=== PATIENT | male | born 1960 ===

== ENCOUNTER 2017-08-10 06:31 | Day surgery (SDC) | payer OTHER ==
--- NOTE | 2017-08-05 22:27 | PDGENHP ---
History and Physical - Chief Complaint Right Hip Pain - History of Present Illness 1. Bilateral~Femoroacetabular impingement (EFRAIN) Cam type, with~resultant labral tear; RIGHT SIDE SYMPTOMATIC 2. Clinical Suspicion of retrotorsion 3. ~~Right Greater Trochanteric bursitis HISTORY OF PRESENT ILLNESS: Dorianis a 57 y.o.~active male~who I have had the pleasure to consult on today. I have enjoyed meeting him. He~lives in [place], [place]. 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 ~Sabina~is ; sabina~has 3~ children. ~Dorianenjoys walking, hiking. Aditya's right~hip pain~started December 2016, with no~recalled trauma or injury, and with no~previous complaints. Doriandoes not have~a known history of hip dysplasia. Presentation today is of anterior right~hip pain.~~The hip does not~wake him~at night and does not~click and catch on him. Sitting does not present a problem~ for him. Doriandoes not~report suffering from lower back pain episodes. Dorianhas~participated in physical therapy (8 weeks). . Sabina~has not~received sufficient symptomatic improvement. Dorianhas~utilized medication for pain management, including OTC acetaminophen. Dorianhas used medication since the pain began. Doriandenies issues with the left~hip. ~ Dorianunderstands that he~has a hip and pelvis problem which should be researched and wishes to get a better understanding of his~hip status, followed by an establishment of a treatment strategy, hoping gabinowould be able to get back to his~well being active life. History: Past medical history: ~ HTN Relevant familial history: None which is relevant Past surgical history: No. Surgery Anesthesia 1 Right arthroscopic shoulder general Doriandenies problematic issues with general anesthesia in the past. I have reviewed, verified and agree with the past medical, surgical, family and social history. Current Medications:Deniahas a current medication list which includes the following prescription(s): acetaminophen, fexofenadine, hydrochlorothiazide, metoprolol succinate, and mometasone. ALLERGIES:~is allergic to aspirin; ibuprofen; and penicillins. Objective: Physical Examination: Dorianis 5~feet 9~inches tall and weighs 194~Lbs. Aditya~is AAO x3; he~is well- nourished, in NAD. Skin is warm and dry. ~Breathing is non-labored. ~CV with RRR by pulse. Abdomen is soft, NTND. Currently, he~walks with a abnormal antalgic gait favoring LEFT leg. Trendelenburg sign is negative~and proprioception is reduced, both~sides. He~presents with no~signs of joint laxity. Beightons Score: 0 Lower spine examination is negative~for sciatic or femoral nerve irritation with negative~SLR &~femoral stretch tests. Range of motion of the spine is normal~for flexion, extension, and rotations, with no~associated pain. Strength, Sensation and pulses are normal - bilaterally Ankles and knees exams are normal~and no~mal-alignment is evident. He~has no leg length discrepancy. Thigh circumference is symmetric~with no evidence for muscle atrophy~on both~ side. Hip ROM (degrees): FL ER At 90~hip FL IR At 90~hip FL AB AD EX IR Neutral hip ER Neutral hip R 100 45 5 30 5 5 10 45 L 100 45 5 30 5 10 15 35 Specific hip and pelvis tests: Impingement Test ANGELITO Roll Add. Longus R +++ +++ + Negative L Negative Negative Negative Negative Glut. Med ITB Posterior Imp R Negative 5/5 strength Negative 5/5 strength Negative L Negative 5/5 strength Negative 5/5 strength Negative Squeeze test measured normal Bony Symphysis pubis is pain free~to touch while concentric activity of the rectus abdominis, does not~produce pain at its insertion. Ilio Psos specific tests are positive for pain during cycling for the right hip~ , no snap. HF has weakness no pain the right hip. Greater trochanteric burse is painful~on the right hip. Piriformis tests: FAIR is negative, with no~local signs of neuritis related to sciatic nerve. SIJs examination is normal~with normal~ANGELITO in relation and local tenderness. Hamstrings tests are negative~functional contraction and negative~tendinopathy both hips. On a daily basis, the following percentages reflect Aditya's overall total pain: Deep hip: 80% Right GT: 20% Imaging: Radiology studies which I have personally reviewed, analyzed and measured are below: XR: AP of the hip and pelvis: Performed in a good~technique Coccyx at the level of ~pubic symphysis Standing [place] Lines are preserved. Minimal~Pathological signs are seen in the Symphysis Pubis. Minimal~Pathological signs are seen at the Ischial tuberosity. ~ Specific measurements show: NSA~ LCE Sourcil~Angle Sharp's angle Lat. Cam Lat. Pincer C.Over~sign Head~Coverage % ATDmm R N 30 10 41 + - 12-12:30 N N L N 28 8 40 + - 12-2 N N Pos. wall sign ISS NAD ~~Dysplasia Comments R + Negative 17.2~mm Negative L + Negative 11.2~mm Negative Sclerosis Sup. Lat. OA Cysts Joint Space-WBZ Joint Space-Medial R + + Negative 5.6~mm 7.1~mm L + + Negative 6.3~mm 6.7~mm X Table lateral: Anterior cam lesion is seen~on the right hip. Alpha Angle: ~ Right 60~irma Impression and plan: Aditya~is a 57 y.o.~active male~suffering from symptomatic Right~hip pain due to Right~Femoroacetabular impingement (EFRAIN) Cam type, with~resultant labral tear~ causing significant disability to him~and altering his~sport and life activities. Physical examination, imaging, and his~story correspond with the diagnosis mentioned above. I explained that femoroacetabular impingement (EFRAIN) arises due to a bony or soft tissue conflict between the femur (ball) and acetabulum (socket) caused by an abnormality in the shape of the hip joint. Over time, repetitive impingement can result in damage to the labrum and adjacent surface cartilage within the socket, ultimately giving rise to progressive osteoarthritis of the hip. I explained that although a labral tear can be a source of pain, it is rarely the root of the problem and typically occurs secondary to an underlying abnormality in the shape and mechanics of the hip joint. ~ I reviewed conservative treatment options for EFRAIN including activity modification to avoid positions of impingement, physical therapy, non-steroidal anti-inflammatory medications, and various injections (corticosteroid and PRP) aimed at reducing inflammation in the hip joint or/and preventing dynamic impingement. PRP injections may promote healing and reduce symptoms in certain cases but it will not repair chronically damaged tissue. Although these measures may help to buy time and reduce current level of symptoms, they are not a definitive solution to the problem given the underlying abnormality in the shape of the hip joint. Patients who have failed conservative management and continue to experience symptoms are candidates for hip arthroscopy, a minimally invasive surgery that can definitively address the underlying problem. Hip arthroscopy typically includes treating the labrum with either repair or reconstruction of the torn labrum; as well as addressing the underlying abnormalities by restoring the normal shape to the hip joint. ~If the cartilage is damaged a Microfracture surgical procedure may also be necessary to help stimulate the growth of fibrocartilage. ~If a patient requires a labral reconstruction or a Microfracture, the initial rehabilitation from the surgery may take longer, but the exterminator results are typically favorable. I reviewed the technical aspects of hip arthroscopy including risks, benefits, and expected course of recovery. Aditya~understands that hip arthroscopy is a minimally invasive outpatient procedure carried out through small incisions on the outer aspect of the hip joint. During surgery, the labral tear will be identified and either repaired or reconstructed~using bone anchors and suture material. Additionally, any excessive bone will be removed with a high-speed mayuri to reshape the hip joint and restore normal anatomy. Risks include infection, bleeding, injury to nearby nerves or vessels, stiffness, persistent pain, instability, venous thromboembolic disease, and traction related complications including temporary foot numbness. Rarely, revision surgery may be required to address these problems. Overall recovery takes approximately 4~ 8~months depending on the extent of damage and degree of repair. In the event that the labral tissue quality is inadequate for successful repair and healing, Aditya~understands that a labral reconstruction will be performed. This procedure entails placing a cadaver tissue graft within the hip joint and stabilizing it with bone anchors to build a new labrum. The overall recovery time for labral reconstruction is similar to that of labral repair, although the surgical procedure takes longer to perform. Aditya~will review the info presented. In order to obtain more detailed information regarding the alignment, orientation, and shape of the bony hip and pelvis I will order a CT scan to be performed. The results of the CT scan, including femoral torsion and acetabular version measured values and 3D images, will aid me in deciding on the best treatment strategy and surgical pre-planning. Dorianwill contact us if he~wishes to pursue further treatment in the future. Dorianis happy with this plan. I have also supplied him~with handouts, outlining the expected surgical treatment and rehab involved. I wish~Aditya~all the best, ~~ PRINCESS Fagan History Information - Allergies/Home Medication List Allergies/Adverse Reactions: aspirin Allergy (Verified 07/30/17 10:34) RESP DISTRESS ibuprofen Allergy (Verified 07/30/17 10:34) RESP DISTRESS Penicillins Allergy (Verified 07/30/17 10:33) CHILDHOOD UNK Home Medications: Thelma Allergy 07/30/17 [Last Taken Unknown] HCTZ (*) 07/30/17 [Last Taken Unknown] Metoprolol Succinate 07/30/17 [Last Taken Unknown] Nasal [place] 07/30/17 [Last Taken Unknown] Tylenol Extra Strength 07/30/17 [Last Taken Unknown] I have personally reviewed and updated: medical history - Social History Smoking Status: Former smoker Review of Systems Review of Systems: Physical Exam Physical Exam:
[2017-08-10] MEDS ORDERED: ACETAMINOPHEN 500 MG TAB PO ONE (06:43)
[2017-08-10] MEDS ORDERED: PREGABALIN 150 MG CAP PO ONE (06:43)
[2017-08-10] MEDS ORDERED: CLINDAMYCIN 900 MG/DEXTROSE 50 ML IV ONE (06:43)
[2017-08-10] MEDS ORDERED: LR 1,000 ML IV ONE (06:45)
[2017-08-10] MEDS ORDERED: BUPIVACAINE 0.25% 30 ML SDV ONE (06:57)
[2017-08-10] MEDS ORDERED: EPINEPHrine 1 MG/ML INJ ONE ×2 (06:57→10:31)
--- NOTE | 2017-08-10 07:35 | PDANEPAE ---
ANE History of Present Illness 57 yo with EFRAIN ANE Past Medical History - Cardiovascular History Hx Hypertension: Yes Hx Arrhythmias: No Hx Chest Pain: No Hx Coronary Artery / Peripheral Vascular Disease: No Hx CHF / Valvular Disease: No Hx Palpitations: No - Pulmonary History Hx COPD: No Hx Asthma/Reactive Airway Disease: No Hx Recent Upper Respiratory Infection: No Hx Oxygen in Use at Home: No Hx Sleep Apnea: No Sleep Apnea Screening Result - Last Documented: Negative - Neurologic History Hx Cerebrovascular Accident: No Hx Seizures: No Hx Dementia: No - Endocrine History Hx Diabetes: No - Renal History Hx Renal Disorders: No - Liver History Hx Hepatic Disorders: No - Neurological & Psychiatric Hx Hx Neurological and Psychiatric Disorders: No - Cancer History Hx Cancer: No - Congenital Disorder History Hx Congenital Disorders: No - GI History Hx Gastrointestinal Disorders: No - Other Health History Other Health History: ALLERGIC RHINITIS - Chronic Pain History Chronic Pain: Yes (R HIP PAIN) - Surgical History Prior Surgeries: TONSILLECTOMY. R SHOULDER SCOPE ANE Review of Systems Review of Systems: - Exercise capacity METS (RN): 4 METS ANE Patient History - Allergies Allergies/Adverse Reactions: aspirin Allergy (Verified 07/30/17 10:34) RESP DISTRESS ibuprofen Allergy (Verified 07/30/17 10:34) RESP DISTRESS Penicillins Allergy (Verified 07/30/17 10:33) CHILDHOOD UNK - Home Medications Home Medications: Thelma Allergy 07/30/17 [Last Taken 08/09/17] HCTZ (*) 07/30/17 [Last Taken 08/08/17] Metoprolol Succinate 07/30/17 [Last Taken 08/10/17] Nasal [place] 07/30/17 [Last Taken 08/09/17] Tylenol Extra Strength 07/30/17 [Last Taken 08/09/17] - NPO status NPO Status: no food or drink >8 hours NPO Since - Liquids (Date): 08/10/17 NPO Since - Liquids (Time): 05:30 NPO Since - Solids (Date): 08/09/17 NPO Since - Solids (Time): 21:00 - Anes Hx Anes Hx: no prior problems - Smoking Hx Smoking Status: Former smoker - Family Anes Hx Family Hx Anesthesia Complications: NEG ANE Labs/Vital Signs - Vital Signs Blood Pressure: 151/109 Heart Rate: 81 Respiratory Rate: 16 O2 Sat (%): 96 Height: 175.26 cm Weight: 86.183 kg ANE Physical Exam - Airway Neck exam: FROM Mallampati Score: Class 1 - Pulmonary Pulmonary: no respiratory distress - Cardiovascular Cardiovascular: regular rate and rhythym - ASA Status ASA Status: II ANE Anesthesia Plan Anesthesia Plan: general endotracheal anesthesia
[2017-08-10] MEDS ORDERED: MIDAZOLAM 2 MG/2 ML VIAL IVP ONE (07:36)
[2017-08-10] MEDS ORDERED: fentaNYL 250 MCG/5 ML INJ ONE (08:35)
[2017-08-10] MEDS ORDERED: PROPOFOL 200 MG/20 ML VIAL ONE (08:36)
[2017-08-10] MEDS ORDERED: ONDANSETRON 4 MG/2 ML VIAL IVP PRN ×2 (12:15→13:32)
[2017-08-10] MEDS ORDERED: HYDROCODONE/APAP 5/325 TAB PO PRN (12:15)
[2017-08-10] MEDS ORDERED: oxyCODONE IR 5 MG TAB PO PRN ×2 (12:15→13:32)
[2017-08-10] MEDS ORDERED: NALOXONE HCL 0.4 MG/ML INJ IVP PRN (12:15)
[2017-08-10] MEDS ORDERED: PROMETHAZINE HCL 25 MG/ML INJ IVP PRN ×2 (12:15→13:32)
--- NOTE | 2017-08-10 12:16 | POSTANESTH ---
Post Anesthetic Evaluation Cardiovascular Status: Normal, Stable Respiratory Status: Normal, Stable Level of Consciousness/Mental Status: Can Participate in Eval Pain Control: Adequate, Prn Tx Ordered Nausea/Vomiting Control: Adequate, Prn Tx Ordered Complications Possibly Related to Anesthesia: None Noted
[2017-08-10] MEDS ORDERED: fentaNYL 100 MCG/2 ML INJ ONE (12:20)
[2017-08-10] MEDS ORDERED: HYDROmorphONE/DILAUDID 2 MG/ML INJ ONE (12:20)
[2017-08-10] MEDS: fentaNYL 100 MCG/2 ML INJ IVP PRN ×2 (12:23→12:35)
[2017-08-10] MEDS: HYDROmorphONE/DILAUDID 2 MG/ML INJ IVP PRN ×2 (12:35→12:38)
[2017-08-10] MEDS ORDERED: ACETAMINOPHEN 325 MG TAB PO PRN (13:32)
[2017-08-10] MEDS ORDERED: ONDANSETRON DISINTEGRATING 4 MG TAB PO PRN (13:32)
[2017-08-10] MEDS ORDERED: HYDROmorphONE/DILAUDID 1 MG/ML INJ IVP PRN (13:32)
[2017-08-10] MEDS ORDERED: HYDROCODONE/APAP 5/325 TAB ONE (13:59)
[2017-08-10 15:24] VITALS: BP 121/86
== END 2017-08-10 15:54 | disposition home or self-care (01) ==
LOC: FSGY 06:31 → F3N 13:32 → UNDOADMOB 13:32 → FSGY 15:54
PROVIDERS: ATTEND Orthopaedic Surgery Sports Medicine
DX: M25.851 Other specified joint disorders, right hip (principal); S73.191A Other sprain of right hip, initial encounter; M16.11 Unilateral primary osteoarthritis, right hip
CPT/HCPCS: C1713; J0171; J1170; J2250; J2704; J3010